=== PATIENT | male | born 1990 | race African-American/Black ===

== ENCOUNTER 2016-05-29 15:18 | Emergency (ER) | payer MEDICAID, OTHER ==
[~2016-05-29] VITALS: Ht 180.3 cm; Wt 67.7 kg
[~2016-05-29 15:18] MED LIST: DIVA500T52 PO; OLAN10TA3 PO
[2016-05-29] MEDS ORDERED: HYDROCODONE/ACETAMINOPHEN 10-325 MG TABLET PO ONE (16:30)
[2016-05-29 17:01] VITALS: BP 128/85
== END 2016-05-29 17:38 | disposition home or self-care (01) ==
LOC: EMS 15:21
DX: S63.257A Unspecified dislocation of left little finger, initial encounter (principal); W23.0XXA Caught, crushed, jammed, or pinched between moving objects, initial encounter; Y93.67 Activity, basketball; Y92.89 Other specified places as the place of occurrence of the external cause; Y99.8 Other external cause status
CPT/HCPCS: 26770; 99284

== ENCOUNTER 2016-10-06 04:14 | Emergency (ER) | payer SELFPAY ==
[~2016-10-06] VITALS: Ht 180.3 cm; Wt 73.0 kg
[2016-10-06 04:16] VITALS: BP 136/82
== END 2016-10-06 05:34 | disposition home or self-care (01) ==
LOC: EMS 04:16
DX: T16.2XXA Foreign body in left ear, initial encounter (principal); X58.XXXA Exposure to other specified factors, initial encounter; Y93.89 Activity, other specified; Y92.89 Other specified places as the place of occurrence of the external cause; Y99.8 Other external cause status
CPT/HCPCS: 69200; 99284